=== PATIENT | female | born 1960 | race Caucasian/White ===

== ENCOUNTER 2016-10-06 18:09 | Emergency (ER) | payer BC ==
[2016-10-06 18:20] VITALS: BMI 33.0
--- NOTE | 2016-10-06 19:20 | PDOC ---
History of Present Illness - General History Source: Patient, Spouse Exam Limitations: No Limitations - History of Present Illness Initial Comments: 10/06/16 20:27 The patient is a 56-year-old female, with no significant past medical history, who presents to the emergency department complaining of numbness to the left side of her body and her tongue this afternoon. The patient reports she was driving home from work around 16:45 and was stuck in traffic, when suddenly she began to feel numbness in her face, tongue, and her extremities. She states she began to have blurry vision and felt generally weak. She states these symptoms lasted for approximately one minute. The patient reports pulling over to the side of the road and lowering the windows to let some fresh air in, but was feeling dizzy. She states that the temperature in the car was normal before her symptoms began. After pulling over, she reports contacting her to inform him about her symptoms, who suggested he would meet her at home. After arriving home, the patient reports symptoms of chest pain and nausea. She denies any associated palpitations, diaphoresis, shortness of breath, or vomiting. Due to concern the reports he brought her to the ED for further evaluation. The patient reports she has not experienced anything like this in the past. She currently reports a mild headache and chest discomfort. She denies any changes in appetite. She denies any recent travel or sick contacts. She denies fever, chills, or cough. She denies diarrhea, constipation , or changes in urination patterns. Allergies: aspirin, penicillins, codeine Past Surgical History: Cholycystectomy Social History: Non-smoker. Denies alcohol or drug use. Family History: Mother: hypertension and diabetes; father: passed from CVA PCP: Dr. Oates <Chelsi Mcdermott - Last Filed: 10/06/16 22:32> <Betty Bhardwaj - Last Filed: 10/06/16 23:21> - General Chief Complaint: CVA/TIA Stated Complaint: CHEST PAIN/LT ARM NUMB Time Seen by Provider: 10/06/16 19:18 Past History <Chelsi Mcdermott - Last Filed: 10/06/16 22:32> - Past Medical History Other medical history: none - Surgical History Cholecystectomy: Yes - Psycho/Social/Smoking Cessation Hx Suicidal Ideation: No Smoking History: Never smoked Have you smoked in the past 12 months: No Information on smoking cessation initiated: No Hx Alcohol Use: No Drug/Substance Use Hx: No Substance Use Type: None <Betty Bhardwaj - Last Filed: 10/06/16 23:21> - Past Medical History Allergies/Adverse Reactions: Allergies Allergy/AdvReac Type Severity Reaction Status Date / Time aspirin Allergy Verified 10/06/16 18:11 Penicillins Allergy Verified 10/06/16 18:11 codeine AdvReac Verified 10/06/16 18:11 Home Medications: Ambulatory Orders NK [No Known Home Medication] 10/06/16 Review of Systems - Review of Systems Able to Perform ROS?: Yes Comments:: 10/06/16 20:30 GENERAL/CONSTITUTIONAL: +Weakness . No fever or chills. HEAD, EYES, EARS, NOSE AND THROAT: +Change in vision. No ear pain or discharge. No sore throat. CARDIOVASCULAR: +Chest pain. No shortness of breath. RESPIRATORY: No cough, wheezing, or hemoptysis. GASTROINTESTINAL: +Nausea. No vomiting, diarrhea or constipation. GENITOURINARY: No dysuria, frequency, or change in urination. MUSCULOSKELETAL: No joint or muscle swelling or pain. No neck or back pain. SKIN: No rash. NEUROLOGIC: +Headache, +Numbness in tongue and left side of the body. No vertigo or loss of consciousness. ENDOCRINE: No increased thirst. No abnormal weight change. HEMATOLOGIC/LYMPHATIC: No anemia, easy bleeding, or history of blood clots. ALLERGIC/IMMUNOLOGIC: No hives or skin allergy. <Chelsi Mcdermott - Last Filed: 10/06/16 22:32> *Physical Exam - Vital Signs Last Vital Signs Temp Pulse Resp BP Pulse Ox 98.2 F 78 18 137/78 100 10/06/16 18:15 10/06/16 18:15 10/06/16 18:15 10/06/16 18:15 10/06/16 18:15 - Physical Exam Comments: 10/06/16 20:30 GENERAL: Awake, alert, and fully oriented, in no acute distress HEAD: No signs of trauma EYES: PERRLA, EOMI, sclera anicteric, conjunctiva clear ENT: Auricles normal inspection, hearing grossly normal, nares patent, oropharynx clear without exudates. Moist mucosa NECK: Normal ROM, supple, no lymphadenopathy, JVD, or masses LUNGS: Breath sounds equal, clear to auscultation bilaterally. No wheezes, and no crackles HEART: Regular rate and rhythm, normal S1 and S2, no murmurs, rubs or gallops ABDOMEN: Soft, nontender, normoactive bowel sounds. No guarding, no rebound. No masses. MUSCULOSKELETAL: No flank pain. EXTREMITIES: Normal range of motion, no edema. No clubbing or cyanosis. No cords, erythema, or tenderness NEUROLOGICAL: Cranial nerves II through XII grossly intact. Normal speech, normal gait SKIN: Warm, Dry, normal turgor, no rashes or lesions noted. <Chelsi Mcdermott - Last Filed: 10/06/16 22:32> - Vital Signs Last Vital Signs Temp Pulse Resp BP Pulse Ox 98.2 F 78 18 137/78 100 10/06/16 18:15 10/06/16 18:15 10/06/16 18:15 10/06/16 18:15 10/06/16 18:15 <Betty Bhardwaj - Last Filed: 10/06/16 23:21> Heart Score/ECG Review - ECG Impressions Comment:: 10/06/16 22:33 Vent. Rate: 67 bpm IMPRESSION: Normal sinus rhythm. Cannot rule out anterior infarct. <Chelsi Mcdermott - Last Filed: 10/06/16 22:32> ED Treatment Course - LABORATORY CBC & Chemistry Diagram: 10/06/16 19:30 10/06/16 19:30 - ADDITIONAL ORDERS Additional order review: 10/06/16 19:30 RBC 4.47 MCV 86.0 MCHC 33.9 RDW 13.1 MPV 7.8 Neutrophils % 43.5 Lymphocytes % 42.4 H D Monocytes % 10.1 Eosinophils % 3.5 Basophils % 0.5 - RADIOLOGY Radiograph Interpretation: 10/06/16 22:23 EXAM: Head CT INTERPRETED BY: Dr. Cortez REVIEWED BY: Dr. Bhardwaj IMPRESSION: No CT evidence of acute intracranial pathology. <Chelsi Mcdermott - Last Filed: 10/06/16 22:32> - LABORATORY CBC & Chemistry Diagram: 10/06/16 19:30 10/06/16 19:30 <Betty Bhardwaj - Last Filed: 10/06/16 23:21> Medical Decision Making - Medical Decision Making 10/06/16 23:17 Pt comes with perioral numbness and weakness; states that she was driving when she was overcome with numbness that also included her hands. She is anxoius in the ER and she states that she has no history of anxiety. She has normal exam, and normal labs and normal head CT. Pt advised to remain in the hospital for observation and for neuro consult and potentially for an MRI if needed. However patient is refusing to stay after initially agreeing to stay <Betty Bhardwaj - Last Filed: 10/06/16 23:21> *DC/Admit/Observation/Transfer - Attestations Scribe Attestion: 10/06/16 20:31 Documentation prepared by Chelsi Mcdermott, acting as medical doctor nuclear medicine for Betty Bhardwaj MD. <Chelsi Mcdermott - Last Filed: 10/06/16 22:32> <Betty Bhardwaj - Last Filed: 10/06/16 23:21> Diagnosis at time of Disposition: Perioral numbness, Dizziness - Discharge Dispostion Condition at time of disposition: Guarded - Referrals Referrals: STAFF,NOT ON [Primary Care Provider] -
[2016-10-06] MEDS ORDERED: METOCLOPRAMIDE HCL INJECTION 10 MG/2 ML VIAL IVPB ONE (19:55)
[2016-10-06 20:22] LABS: BASOPHIL 0.5 % (0-2.0); EOSINOPHIL 3.5 % (0-4.5); MCH 29.2 pg (25.7-33.7); MCHC 33.9 g/dl (32.0-36.0); MEAN PLT VOLUME 7.8 fl (7.5-11.1); NEUTROPHILS 43.5 % (42.8-82.8); PLATELET COUNT 342 K/MM3 (134-434); RDW 13.1 % (11.6-15.6); WHITE BLOOD COUNT 7.7 K/mm3 (4.0-10.0)
[2016-10-06 20:36] LABS: ALBUMIN 3.1 g/dl (3.4-5.0); ALK PHOS 107 U/L (45-117); ANION GAP 8 (8-16); BILIRUBIN,TOTAL 0.2 mg/dL (0.2-1.0); CALCIUM 8.4 mg/dL (8.5-10.1); CO2 28 mmol/L (21-32); CREATININE 0.6 mg/dL (0.55-1.02); GLUCOSE,RANDOM 103 mg/dL (74-106); SGOT/AST 15 U/L (15-37); SGPT/ALT 30 U/L (12-78); TOT PROT 6.4 g/dl (6.4-8.2)
[2016-10-06 20:38] LABS: TROPONIN I < 0.02 ng/ml (0.00-0.05)
--- NOTE | 2016-10-06 22:14 | PDOC ---
NIH Stroke Scale - Last Known Well Date/Time & Onset Date Last Known Well: 10/06/16 Time Last Known Well: 16:30 - Initial Evaluation Level of consciousness: Alert Ask patient the month and their age: Answers both correctly Ask patient to open & close eyes; make fist and let go: Obeys both correctly Best gaze (horizontal eye movement): Normal Visual field testing: No visual field loss Facial paresis (Show teeth/raise eyebrows/close eyes tight): Normal symmetrical movement Motor Function: Left Arm: Normal Motor Function: Right Arm: Normal (extends arm 90 (or 45) degrees for 10 seconds without drift Motor Function: Left Leg: Normal (extends leg 30 degrees for 5 seconds without drift) Motor Function: Right Leg: Normal (extends leg 30 degrees for 5 seconds without drift) Limb Ataxia: No ataxia Sensory(Use pinprick test arms,legs,trunk,face/side to side): Normal Best language (Describe picture, name items, read sentences): No Aphasia Dysarthria (read several words): Normal articulation Extinction and Inattention: No abnormality - Total Score NIH Stroke Scale Score: 0
[2016-10-06 23:28] VITALS: BP 118/61; PULSE 71; TEMP 97.9
--- NOTE | 2016-10-09 12:32 | EKG ---
Test Reason : Blood Pressure : / mmHG Vent. Rate : 067 BPM Atrial Rate : 067 BPM P-R Int : 202 ms QRS Dur : 082 ms QT Int : 380 ms P-R-T Axes : 048 060 052 degrees QTc Int : 401 ms NORMAL SINUS RHYTHM CANNOT RULE OUT ANTERIOR INFARCT , AGE UNDETERMINED ABNORMAL ECG WHEN COMPARED WITH ECG OF 03-NOV-2013 20:50, VENT. RATE HAS DECREASED BY 38 BPM Confirmed by KINGS MAD[place], LISET ([id number]) on 10/09/2016 12:32:25 PM Referred By: Confirmed By:LISET KU MD
== END 2016-10-06 23:31 | disposition left against medical advice (07) ==
LOC: JER 18:09
DX: R20.0 Anesthesia of skin (principal); R42 Dizziness and giddiness
CPT/HCPCS: 36415; 70450-TC; 71020-TC; 80053; 82550; 84484; 85025; 93005; 93010; 99284-25

== ENCOUNTER 2024-09-23 13:18 | Emergency (ER) | payer BC ==
[2024-09-23 13:23] VITALS: BP 148/81; PULSE 74; RESP 18; TEMP 99.5; BMI 32.1
[2024-09-23] MEDS ORDERED: MAG HYDROX/AL HYDROX/SIMETH 30 ML UNIT-DOSE CUP ONE (14:02)
[2024-09-23] MEDS ORDERED: ONDANSETRON 8 MG TABLET (FP) PO ONE (14:02)
[2024-09-23] MEDS: MAG HYDROX/AL HYDROX/SIMETH 30 ML UNIT-DOSE CUP PO ONE (14:08)
[2024-09-23] MEDS: ONDANSETRON *ODT* 4 MG TABLET SL ONE (14:08)
== END 2024-09-23 14:42 | disposition home or self-care (01) ==
LOC: JER 13:18
DX: A08.4 Viral intestinal infection, unspecified (principal); R11.2 Nausea with vomiting, unspecified; R50.9 Fever, unspecified; R10.12 Left upper quadrant pain
CPT/HCPCS: 99283-25; Q0162